=== PATIENT | female | born 1985 | race Two or more races ===

== ENCOUNTER 2020-04-28 15:28 | Observation (INO) | payer SELFPAY ==
[~2020-04-28] VITALS: Ht 160 cm; Wt 78.1 kg
[2020-04-28] MEDS ORDERED: IV RINGERS,LACTATED 1000ML 1,000 ML IV SCH (15:34)
[2020-04-28] MEDS ORDERED: OXYTOCIN 30 UNIT/500 ML PREMIX 500 ML IV PRN ×3 (15:45→23:45)
[2020-04-28] MEDS ORDERED: ACETAMINOPHEN 325 MG TABLET. PO PRN ×2 (15:45→23:45)
[2020-04-28] MEDS ORDERED: ONDANSETRON PF 4 MG/2 ML VIAL. IVP PRN (15:45)
[2020-04-28] MEDS ORDERED: ZOLPIDEM 5 MG TABLET. PO PRN ×2 (15:45→23:45)
[2020-04-28] MEDS ORDERED: 0.9 % SODIUM CHLORIDE 10 ML DISP.SYRIN. IV PRN ×2 (15:45→23:45)
[2020-04-28] MEDS ORDERED: fentaNYL PF VIAL 100 MCG/2 ML VIAL IVP PRN ×2 (15:45)
[2020-04-28] MEDS ORDERED: CITRIC ACID/SODIUM CITRATE 30 ML SOLUTION. PO PRN (15:45)
[2020-04-28] MEDS ORDERED: TERBUTALINE 1 MG/ML VIAL. SQ PRN (15:45)
[2020-04-28] MEDS ORDERED: LIDOCAINE 1% PF 30 ML VIAL. INJ PRN (15:45)
[2020-04-28] MEDS ORDERED: BUTORPHANOL 2 MG/ML VIAL. IVP PRN ×2 (15:45)
[2020-04-28] MEDS ORDERED: IBUPROFEN 400 MG TABLET. PO PRN ×3 (15:45→23:45)
[2020-04-28 16:04] LABS: BILIRUBIN,URINE NEGATIVE (NEG); CLARITY,URINE CLEAR; COLOR,URINE YELLOW; NITRITE,URINE NEGATIVE (NEG); PROTEIN,URINE NEGATIVE (NEG-TRACE); UROBILINOGEN,URINE 0.2 mg/dL (0.2 mg/dL)
[2020-04-28 16:09] LABS: BACTERIA,URINE FEW /HPF (0-FEW); SQUAMOUS EPITHELIAL CELL,UR FEW /LPF; WBC,URINE OCC /HPF (0-4)
[2020-04-28 16:10] LABS: BARBITURATES NEG (NEG); BENZODIAZEPINES NEG (NEG); CANNABINOIDS NEG (NEG); COCAINE NEG (NEG); METHADONE NEG (NEG); OPIATES NEG (NEG); PHENCYCLIDINE NEG (NEG)
[2020-04-28 16:14] LABS: AMPHETAMINE/METHAMPHETAMINE NEG (NEG)
[2020-04-28 16:14] LABS: AMNIO PT POSITIVE
[2020-04-28 16:35] LABS: BASO % 0 % (0-3); EOS % 0 % (0-3); HEMATOCRIT 34.8 % (36.0-47.0); HEMOGLOBIN 11.9 g/dL (12.0-15.5); LYMPH # 1.9 x10^3/uL (1.0-4.8); LYMPH % 16 % (24-48); MEAN CORPUSCULAR HEMOGLOBIN 29 pg (25-35); MEAN CORPUSCULAR HGB CONC 34 g/dL (31-37); MEAN CORPUSCULAR VOLUME 84 fL (79-100); MONO # 0.8 x10^3/uL (0.0-1.1); MONO % 7 % (0-9); NEUT # 9.5 x10^3/uL (1.8-7.7); NEUT % 77 % (31-73); PLATELET COUNT 245 x10^3/uL (140-400); RED BLOOD COUNT 4.13 x10^6/uL (3.50-5.40); RED CELL DISTRIBUTION WIDTH 13.7 % (11.5-14.5); WHITE BLOOD COUNT 12.4 x10^3/uL (4.0-11.0)
[2020-04-28] MEDS ORDERED: ROPIVacaine 0.2% PF 10 ML VIAL. ONE ×2 (17:00→21:31)
[2020-04-28] MEDS ORDERED: OXYTOCIN PREMIX 30 UNIT/500 ML NS BAG. IV ONE (17:00)
[2020-04-28] MEDS ORDERED: L&D EPIDURAL 50 ML SYRINGE. ONE (17:00)
[2020-04-28] MEDS ORDERED: ePHEDrine PF IN SALINE 50 MG/10 ML SYRINGE. IV PRN (21:30)
[2020-04-28] MEDS ORDERED: L&D EPIDURAL SYRINGE 50 ML EPID PRN (21:30)
[2020-04-28] MEDS ORDERED: IV RINGERS,LACTATED 1000ML 1,000 ML IV ONE (21:30)
[2020-04-28] MEDS ORDERED: NALOXONE 0.4 MG/ML VIAL. IV PRN (21:30)
[2020-04-28] MEDS ORDERED: ONDANSETRON PF 4 MG/2 ML VIAL. IV PRN (21:30)
--- NOTE | 2020-04-28 23:38 | PDOC1 ---
OB - History Hx of Present Care: Good Care Ultrasounds: Normal mid trimester US Obstetrical Complications: None Medical Complications: None Past Family/Social History * Past Medical, Surgical, Family and Obstetric Histories reviewed from chart. OB - Chief Complaint & HPI Date of Admission: Date of Admission: Apr 28, 2020 at 15:28 Chief Complaint/History : 2 Para: 1 EGA: 39 Reason for admission: active labor, rupture of membranes Admission Nurse Assessment Rev: Yes OB - Admission Exam Physical Exam HEENT: Normal Heart: Regular Rate Lungs: Clear Abdomen: Gravid, Non tender, Soft Extremities: Edema Reflexes: Normal Cervical Dilatation: 2cm Effacement: 50% Station: -3 Membranes: Ruptured Amniotic Fluid: Clear Heart Rate: Normal Accelerations: Accelerations Present Decelerations: No decelerations Contractions on Admission: >10 Minutes Apart Text A: 38 wks IUP SROM Active labor P: Admit labor management. Start pitocin augmentation. ANNA YANG Jr, MD Apr 28, 2020 23:38
--- NOTE | 2020-04-28 23:42 | PDOC ---
VAGINAL DELIVERY DATE DATE: 04/28/20 TIME: 23:38 : 2 Para: 2 EGA: 38 VAGINAL DELIVERY: VTX VACCUM ASSISTED: No PLACENTA: Spontaneous 8/9 SEX: Female WEIGHT Weight [ 6 lbs. 2 oz] Nuchal Cord: No Amniotic Fluid: Clear PAIN: Epidural EPISIOTOMY: No EXTENSION: No EBL 300 ml Signs of Intrauterine Infectio: None Shoulder Dystocia: No ANNA YANG Jr, MD Apr 28, 2020 23:42
[2020-04-28] MEDS ORDERED: TDaP (Adacel) per PROTOCOL. MC PRN (23:45)
[2020-04-28] MEDS ORDERED: PHENYLEPH/MINERAL OIL/PETROLAT RECTAL OINTMENT TUBE. RC PRN (23:45)
[2020-04-28] MEDS ORDERED: diphenhydrAMINE HCL 25 MG CAPSULE PO PRN (23:45)
[2020-04-28] MEDS ORDERED: MMR per PROTOCOL. MC PRN (23:45)
[2020-04-28] MEDS ORDERED: BENZOCAINE 20% TOPICAL AEROSOL SPRAY 57GM CAN. TP PRN (23:45)
[2020-04-28] MEDS ORDERED: oxyCODONE/APAP 5/325 1 TAB TABLET PO PRN (23:45)
[2020-04-28] MEDS ORDERED: DOCUSATE SODIUM 100 MG CAPSULE. PO PRN (23:45)
[2020-04-28] MEDS ORDERED: SIMETHICONE 80 MG TAB.CHEW PO PRN (23:45)
[2020-04-28] MEDS ORDERED: MAGNESIUM HYDROXIDE 2,400 MG/30 ML ORAL.SUSP. PO PRN (23:45)
[2020-04-28] MEDS ORDERED: HYDROCORTISONE 1% TOPICAL OINTMENT 30GM TUBE. TP PRN (23:45)
[2020-04-28] MEDS ORDERED: MAG HYDROX/ALUMINUM HYD/SIMETH 30 ML ORAL.SUSP PO PRN (23:45)
[2020-04-29 02:42] VITALS: BP 92/51
[2020-04-29 03:08] VITALS: BP 109/49
[2020-04-29 07:33] LABS: BASO # 0.1 x10^3/uL (0.0-0.2); BASO % 0 % (0-3); EOS % 0 % (0-3); HEMATOCRIT 35.5 % (36.0-47.0); HEMOGLOBIN 11.9 g/dL (12.0-15.5); LYMPH # 2.2 x10^3/uL (1.0-4.8); LYMPH % 13 % (24-48); MEAN CORPUSCULAR HEMOGLOBIN 28 pg (25-35); MEAN CORPUSCULAR HGB CONC 34 g/dL (31-37); MEAN CORPUSCULAR VOLUME 85 fL (79-100); MONO # 0.9 x10^3/uL (0.0-1.1); MONO % 5 % (0-9); NEUT # 13.5 x10^3/uL (1.8-7.7); NEUT % 82 % (31-73); PLATELET COUNT 232 x10^3/uL (140-400); RED BLOOD COUNT 4.19 x10^6/uL (3.50-5.40); WHITE BLOOD COUNT 16.6 x10^3/uL (4.0-11.0)
[2020-04-29] MEDS ORDERED: FERROUS SULFATE 325 MG TABLET. PO SCH (08:00)
[2020-04-29 08:02] LABS: % LYMPHS 5 % (24-48); % MONOS 7 % (0-10); % SEGS 88 % (35-66); PLT ESTIMATE ADEQUATE (ADEQUATE)
[2020-04-29 08:30] VITALS: BP 92/50
[2020-04-29] MEDS ORDERED: MULTIVITAMIN with MINERAL TABLET. PO SCH (09:00)
[2020-04-29 12:49] VITALS: BP 118/55
--- NOTE | 2020-04-29 14:37 | PDOC ---
OB Progress Note Date of Service 04/29/20 Time of Evaluation 1430 Notes Pt. feeling well. Pain controlled. No complaints. Lab Laboratory Tests Test 04/28/20 15:45 04/28/20 15:55 04/28/20 16:27 04/29/20 07:25 Urine Collection Type Unknown Urine Color Yellow Urine Clarity Clear Urine pH 7.0 (<5.0-8.0) Urine Specific Cascade 1.010 (1.000-1.030) Urine Protein Negative mg/dL (NEG-TRACE) Urine Glucose (UA) Negative mg/dL (NEG) Urine Ketones (Stick) Negative mg/dL (NEG) Urine Blood Trace (NEG) Urine Nitrite Negative (NEG) Urine Bilirubin Negative (NEG) Urine Urobilinogen Dipstick 0.2 mg/dL (0.2 mg/dL) Urine Leukocyte Esterase Negative (NEG) Urine RBC 6-10 /HPF (0-2) Urine WBC Occ /HPF (0-4) Urine Squamous Epithelial Cells Few /LPF Urine Bacteria Few /HPF (0-FEW) Urine Mucus Slight /LPF Urine Opiates Screen Neg (NEG) Urine Methadone Screen Neg (NEG) Urine Barbiturates Neg (NEG) Urine Phencyclidine Screen Neg (NEG) Urine Amphetamine/Methamphetamine Neg (NEG) Urine Benzodiazepines Screen Neg (NEG) Urine Cocaine Screen Neg (NEG) Urine Cannabinoids Screen Neg (NEG) Urine Ethyl Alcohol Neg (NEG) Amniotic Fluid Swab Test Positive Coronavirus (COVID-19)(PCR) Negative (NEGATIVE) White Blood Count 12.4 x10^3/uL (4.0-11.0) 16.6 x10^3/uL (4.0-11.0) Red Blood Count 4.13 x10^6/uL (3.50-5.40) 4.19 x10^6/uL (3.50-5.40) Hemoglobin 11.9 g/dL (12.0-15.5) 11.9 g/dL (12.0-15.5) Hematocrit 34.8 % (36.0-47.0) 35.5 % (36.0-47.0) Mean Corpuscular Volume 84 fL (79-100) 85 fL (79-100) Mean Corpuscular Hemoglobin 29 pg (25-35) 28 pg (25-35) Mean Corpuscular Hemoglobin Concent 34 g/dL (31-37) 34 g/dL (31-37) Red Cell Distribution Width 13.7 % (11.5-14.5) 14.0 % (11.5-14.5) Platelet Count 245 x10^3/uL (140-400) 232 x10^3/uL (140-400) Neutrophils (%) (Auto) 77 % (31-73) 82 % (31-73) Lymphocytes (%) (Auto) 16 % (24-48) 13 % (24-48) Monocytes (%) (Auto) 7 % (0-9) 5 % (0-9) Eosinophils (%) (Auto) 0 % (0-3) 0 % (0-3) Basophils (%) (Auto) 0 % (0-3) 0 % (0-3) Neutrophils # (Auto) 9.5 x10^3/uL (1.8-7.7) 13.5 x10^3/uL (1.8-7.7) Lymphocytes # (Auto) 1.9 x10^3/uL (1.0-4.8) 2.2 x10^3/uL (1.0-4.8) Monocytes # (Auto) 0.8 x10^3/uL (0.0-1.1) 0.9 x10^3/uL (0.0-1.1) Eosinophils # (Auto) 0.0 x10^3/uL (0.0-0.7) 0.0 x10^3/uL (0.0-0.7) Basophils # (Auto) 0.0 x10^3/uL (0.0-0.2) 0.1 x10^3/uL (0.0-0.2) Segmented Neutrophils % 88 % (35-66) Lymphocytes % 5 % (24-48) Monocytes % 7 % (0-10) Platelet Estimate Adequate (ADEQUATE) Laboratory Tests Test 04/28/20 15:45 04/28/20 15:55 04/28/20 16:27 04/29/20 07:25 Urine Collection Type Unknown Urine Color Yellow Urine Clarity Clear Urine pH 7.0 (<5.0-8.0) Urine Specific Cascade 1.010 (1.000-1.030) Urine Protein Negative mg/dL (NEG-TRACE) Urine Glucose (UA) Negative mg/dL (NEG) Urine Ketones (Stick) Negative mg/dL (NEG) Urine Blood Trace (NEG) Urine Nitrite Negative (NEG) Urine Bilirubin Negative (NEG) Urine Urobilinogen Dipstick 0.2 mg/dL (0.2 mg/dL) Urine Leukocyte Esterase Negative (NEG) Urine RBC 6-10 /HPF (0-2) Urine WBC Occ /HPF (0-4) Urine Squamous Epithelial Cells Few /LPF Urine Bacteria Few /HPF (0-FEW) Urine Mucus Slight /LPF Urine Opiates Screen Neg (NEG) Urine Methadone Screen Neg (NEG) Urine Barbiturates Neg (NEG) Urine Phencyclidine Screen Neg (NEG) Urine Amphetamine/Methamphetamine Neg (NEG) Urine Benzodiazepines Screen Neg (NEG) Urine Cocaine Screen Neg (NEG) Urine Cannabinoids Screen Neg (NEG) Urine Ethyl Alcohol Neg (NEG) Amniotic Fluid Swab Test Positive Coronavirus (COVID-19)(PCR) Negative (NEGATIVE) White Blood Count 12.4 x10^3/uL (4.0-11.0) 16.6 x10^3/uL (4.0-11.0) Red Blood Count 4.13 x10^6/uL (3.50-5.40) 4.19 x10^6/uL (3.50-5.40) Hemoglobin 11.9 g/dL (12.0-15.5) 11.9 g/dL (12.0-15.5) Hematocrit 34.8 % (36.0-47.0) 35.5 % (36.0-47.0) Mean Corpuscular Volume 84 fL (79-100) 85 fL (79-100) Mean Corpuscular Hemoglobin 29 pg (25-35) 28 pg (25-35) Mean Corpuscular Hemoglobin Concent 34 g/dL (31-37) 34 g/dL (31-37) Red Cell Distribution Width 13.7 % (11.5-14.5) 14.0 % (11.5-14.5) Platelet Count 245 x10^3/uL (140-400) 232 x10^3/uL (140-400) Neutrophils (%) (Auto) 77 % (31-73) 82 % (31-73) Lymphocytes (%) (Auto) 16 % (24-48) 13 % (24-48) Monocytes (%) (Auto) 7 % (0-9) 5 % (0-9) Eosinophils (%) (Auto) 0 % (0-3) 0 % (0-3) Basophils (%) (Auto) 0 % (0-3) 0 % (0-3) Neutrophils # (Auto) 9.5 x10^3/uL (1.8-7.7) 13.5 x10^3/uL (1.8-7.7) Lymphocytes # (Auto) 1.9 x10^3/uL (1.0-4.8) 2.2 x10^3/uL (1.0-4.8) Monocytes # (Auto) 0.8 x10^3/uL (0.0-1.1) 0.9 x10^3/uL (0.0-1.1) Eosinophils # (Auto) 0.0 x10^3/uL (0.0-0.7) 0.0 x10^3/uL (0.0-0.7) Basophils # (Auto) 0.0 x10^3/uL (0.0-0.2) 0.1 x10^3/uL (0.0-0.2) Segmented Neutrophils % 88 % (35-66) Lymphocytes % 5 % (24-48) Monocytes % 7 % (0-10) Platelet Estimate Adequate (ADEQUATE) Medications Current Medications Sodium Chloride (Normal Saline Flush) 3 ml QSHIFT PRN IV AFTER MEDS AND BLOOD DRAWS; Start 04/28/20 at 15:45 Ringer's Solution 1,000 ml @ 125 mls/hr Q8H IV Last administered on 04/29/20at 01:16; Start 04/28/20 at 15:34 Butorphanol Tartrate (Stadol) 1 mg PRN Q1HR PRN IVP mild to moderate labor pain; Start 04/28/20 at 15:45 Butorphanol Tartrate (Stadol) 2 mg PRN Q1HR PRN IVP Severe labor pain; Start 04/28/20 at 15:45 Fentanyl Citrate (Fentanyl 2ml Vial) 50 mcg PRN Q30MIN PRN IVP Mild to moderate pain; Start 04/28/20 at 15:45 Fentanyl Citrate (Fentanyl 2ml Vial) 100 mcg PRN Q30MIN PRN IVP Severe pain; Start 04/28/20 at 15:45 Acetaminophen (Tylenol) 650 mg PRN Q6HRS PRN PO MILD PAIN / TEMP > 100.3'F Last administered on 04/29/20at 06:27; Start 04/28/20 at 15:45 Ondansetron HCl (Zofran) 4 mg PRN Q4HRS PRN IVP NAUSEA/VOMITING; Start 04/28/20 at 15:45 Citric Acid/ Sodium Citrate (Bicitra) 30 ml 1X PRN PRN PO DYSPEPSIA; Start 04/28/20 at 15:45; Stop 04/29/20 at 15:44 Zolpidem Tartrate (Ambien) 5 mg PRN QHS PRN PO INSOMNIA; Start 04/28/20 at 15:45 Terbutaline Sulfate (Brethine) 0.25 mg 1X PRN PRN SQ SEE COMMENTS; Start 04/28/20 at 15:45; Stop 04/29/20 at 15:44 Lidocaine HCl (Xylocaine 1% Pf 30ml Vial) 30 ml 1X PRN PRN INJ SEE COMMENTS; Start 04/28/20 at 15:45; Stop 04/30/20 at 15:44 Oxytocin/Sodium Chloride 500 ml @ 0 mls/hr CONT PRN IV SEE I/O RECORD; Start 04/28/20 at 15:45 Oxytocin/Sodium Chloride 500 ml @ 0 mls/hr CONT PRN PRN IV Post delivery bleeding; Start 04/28/20 at 15:45 Ibuprofen (Motrin) 800 mg PRN Q6HRS PRN PO PAIN; Start 04/28/20 at 15:45; Stop 04/28/20 at 16:00; Status DC Ibuprofen (Motrin) 800 mg PRN Q8HRS PRN PO PAIN Last administered on 04/29/20at 01:14; Start 04/28/20 at 16:15 Ringer's Solution 1,000 ml @ 0 mls/hr Q0M ONCE IV ; Start 04/28/20 at 21:30; Stop 04/28/20 at 21:36; Status DC Ephedrine Sulfate (ePHEDrine PF IN SALINE SYRINGE) 10 mg PRN Q2MIN PRN IV IF SBP<90; Start 04/28/20 at 21:30 Naloxone HCl (Narcan) 0.04 mg PRN Q1MIN PRN IV SEE COMMENTS; Start 04/28/20 at 21:30 Fentanyl Citrate 50 ml @ 14 mls/hr CONT PRN EPID PAIN; Start 04/28/20 at 21:30 Ondansetron HCl (Zofran) 4 mg PRN Q6HRS PRN IV NAUSEA/VOMITING; Start 04/28/20 at 21:30 Ropivacaine (Naropin 0.2%) 10 ml STK-MED ONCE .ROUTE ; Start 04/28/20 at 21:31; Stop 04/28/20 at 21:32; Status DC Sodium Chloride (Normal Saline Flush) 10 ml QSHIFT PRN IV AFTER MEDS AND BLOOD DRAWS; Start 04/28/20 at 23:45 Oxytocin/Sodium Chloride 500 ml @ 62.5 mls/hr CONT PRN IV SEE I/O RECORD; Start 04/28/20 at 23:45; Stop 04/29/20 at 07:44; Status DC Acetaminophen (Tylenol) 650 mg PRN Q6HRS PRN PO MILD PAIN / TEMP > 100.3'F; Start 04/28/20 at 23:45 Ibuprofen (Motrin) 800 mg PRN Q8HRS PRN PO INFLAMMATION/PAIN PREVENTION; Start 04/28/20 at 23:45 Docusate Sodium (Colace) 100 mg PRN BID PRN PO HARD STOOL; Start 04/28/20 at 23:45 Magnesium Hydroxide (Milk Of Magnesia) 2,400 mg PRN DAILY PRN PO CONSTIPATION; Start 04/28/20 at 23:45 Al Hydroxide/Mg Hydroxide (Mylanta Plus Xs) 30 ml PRN Q4HRS PRN PO HEARTBURN / GAS; Start 04/28/20 at 23:45 Simethicone (Gas-X) 80 mg PRN AFTMEALHC PRN PO GAS / BLOATING; Start 04/28/20 at 23:45 Diphenhydramine HCl (Benadryl) 25 mg PRN Q6HRS PRN PO ITCHING; Start 04/28/20 at 23:45 Benzocaine (Americaine) 1 spray PRN QID PRN TP TOPICAL PAIN; Start 04/28/20 at 23:45 Phenyleph/Shark Oil/Min Oil/Petrol (Preparation H) 1 naomi PRN QID PRN RC RECTAL PAIN; Start 04/28/20 at 23:45 Hydrocortisone (Cortaid) 1 naomi PRN QID PRN TP PERINEAL PAIN; Start 04/28/20 at 23:45 Ferrous Sulfate (Feosol) 325 mg BIDWMEALS PO ; Start 04/29/20 at 08:00; Stop 04/29/20 at 11:59; Status DC Zolpidem Tartrate (Ambien) 5 mg PRN QHS PRN PO INSOMNIA, MAY REPEAT X1; Start 04/28/20 at 23:45 Info (Do NOT chart on this placeholder) 1 ea 1X PRN PRN MC SEE COMMENTS; Start 04/28/20 at 23:45 Info (Do NOT chart on this placeholder) 1 ea 1X PRN PRN MC SEE COMMENTS; Start 04/28/20 at 23:45 Oxycodone/ Acetaminophen (Percocet 5/325) 2 tab PRN Q4HRS PRN PO MODERATE PAIN, SEVERE PAIN; Start 04/28/20 at 23:45 Multivitamins (Thera M Plus) 1 tab DAILY PO ; Start 04/29/20 at 09:00 Fentanyl Citrate (Yiaxtoms-Wdwww-QC 3 Mcg-0.1%) 50 ml STK-MED ONCE .ROUTE ; Start 04/28/20 at 17:00; Stop 04/29/20 at 11:10; Status DC Ropivacaine (Naropin 0.2%) 10 ml STK-MED ONCE .ROUTE ; Start 04/28/20 at 17:00; Stop 04/29/20 at 11:10; Status DC Oxytocin/Sodium Chloride (Oxytocin Premix Infusion) 30 unit STK-MED ONCE IV ; Start 04/28/20 at 17:00; Stop 04/29/20 at 11:10; Status DC Exam Abd: soft, non tender, fundus firm Assessment PPD#1 s/p Plan of Care: Continue current Tx, Mgmt ANNA YANG Jr, MD Apr 29, 2020 14:37
[2020-04-29 18:30] VITALS: BP 89/52
[2020-04-29 22:31] VITALS: BP 95/54
[2020-04-30 05:03] VITALS: BP 100/64
[2020-04-30 12:35] VITALS: BP 105/69
--- NOTE | 2020-04-30 14:42 | PDOC3 ---
OB DISCHARGE SUMMARY DATE OF ADMISSION: 04/28/20 DATE OF DISCHARGE: 04/30/20 REASON FOR ADMISSION: Onset of labor INTRAPARTUM PROCEDURES: Spontanous Vag Deliv DISCHARGE DIAGNOSIS: Term Delivered DISCHARGE INFORMATION: Activity (ad romana), Diet (regular), Instructions (pelvic rest x 6 wks) HOSPITAL COURSE Term gestation delivered vaginally without complications. ANNA YANG Jr, MD Apr 30, 2020 14:42
[2020-04-30] MEDS ORDERED: IBUP-1027 PO (14:43)
--- NOTE | 2020-04-30 14:44 | DISCH ---
DISCHARGE INSTRUCTIONS Condition on Discharge Condition on Discharge: Stable Activity After Discharge Activity Instructions for Disc: Activity as tolerated Lifting Instructions after Dis: No heavy lifting Driving Instructions after Dis: Do not drive today Diet after Discharge Diet after Discharge: Regular Contacting the DRCezar after DC Call your doctor for: Concerns you may have Follow-Up Follow up with: Jean in 6 wks ANNA YANG Jr, MD Apr 30, 2020 14:44
[2020-04-30 15:30] VITALS: BP 119/86
--- NOTE | 2020-04-30 15:55 | NUR ---
Discharge and follow up instructions reviewed and given to pt in French. Pt denies any questions or complaints at time of D/C. Pt ambulated out of the hospital with her S/O and all her belongings. Infant placed in car seat securely and placed rear facing in the back seat of their SUV.
--- NOTE | 2020-04-30 16:00 | NUR ---
Call placed to pt to notify her to make her F/U appt at [facility] instead of at Dr. Bush's office.
== END 2020-04-30 15:55 | disposition home or self-care (01) ==
LOC: 3 SO LND 15:28 → 3 NORTH 04-29 02:15
PROVIDERS: ADMIT Obstetrics & Gynecology; ATTEND Obstetrics & Gynecology
DX: O42.92 Full-term premature rupture of membranes, unspecified as to length of time between rupture and onset of labor (principal); Z3A.38 38 weeks gestation of pregnancy
CPT/HCPCS: 36415; 80307; 81001; 84112; 85007; 85025; 86850; 86900; 86901; G0378; G0379; J2590; J2795; J3010; J7120; U0003

== ENCOUNTER 2022-01-12 17:11 | Emergency (ER) | payer MEDICAID ==
[~2022-01-12] VITALS: Ht 157.5 cm; Wt 59.1 kg
[~2022-01-12 17:11] MED LIST: IBUP-1027 PO
[2022-01-12] MEDS ORDERED: ONDANSETRON PF 4 MG/2 ML VIAL. IVP ONE (18:30)
[2022-01-12] MEDS ORDERED: fentaNYL PF VIAL 100 MCG/2 ML VIAL IVP ONE (18:30)
[2022-01-12] MEDS ORDERED: IV NORMAL SALINE 1000ML BAG 1,000 ML IV ONE (18:30)
[2022-01-12] MEDS ORDERED: FAMOTIDINE 20 MG/2 ML VIAL IVP ONE (18:30)
[2022-01-12 18:41] LABS: AMPHETAMINE/METHAMPHETAMINE NEG (NEG); BARBITURATES NEG (NEG); BENZODIAZEPINES NEG (NEG); CANNABINOIDS NEG (NEG); COCAINE NEG (NEG); METHADONE NEG (NEG); OPIATES NEG (NEG); PHENCYCLIDINE NEG (NEG)
[2022-01-12 18:47] LABS: BASO # 0.1 x10^3/uL (0.0-0.2); BASO % 1 % (0-3); EOS # 0.1 x10^3/uL (0.0-0.7); EOS % 1 % (0-3); HEMATOCRIT 39.7 % (36.0-47.0); HEMOGLOBIN 13.6 g/dL (12.0-15.5); LYMPH # 3.2 x10^3/uL (1.0-4.8); LYMPH % 31 % (24-48); MEAN CORPUSCULAR HEMOGLOBIN 29 pg (25-35); MEAN CORPUSCULAR HGB CONC 34 g/dL (31-37); MEAN CORPUSCULAR VOLUME 83 fL (79-100); MONO # 0.7 x10^3/uL (0.0-1.1); MONO % 7 % (0-9); NEUT % 59 % (31-73); PLATELET COUNT 328 x10^3/uL (140-400); RED BLOOD COUNT 4.75 x10^6/uL (3.50-5.40); RED CELL DISTRIBUTION WIDTH 12.7 % (11.5-14.5); WHITE BLOOD COUNT 10.1 x10^3/uL (4.0-11.0)
[2022-01-12 19:00] LABS: BILIRUBIN,URINE NEGATIVE (NEG); CLARITY,URINE CLEAR; COLOR,URINE YELLOW; NITRITE,URINE NEGATIVE (NEG); PROTEIN,URINE NEGATIVE (NEG-TRACE); UROBILINOGEN,URINE 0.2 mg/dL (0.2 mg/dL)
[2022-01-12 19:01] LABS: BACTERIA,URINE 0 /HPF (0-FEW); RBC,URINE OCC /HPF (0-2)
[2022-01-12 19:06] LABS: CALCIUM 8.9 mg/dL (8.5-10.1); CREATININE 0.8 mg/dL (0.6-1.0); GFR 81.6; POTASSIUM 3.8 mmol/L (3.5-5.1)
[2022-01-12 19:12] LABS: ALBUMIN 4.3 g/dL (3.4-5.0); TOTAL BILIRUBIN 0.4 mg/dL (0.2-1.0); TOTAL PROTEIN 8.5 g/dL (6.4-8.2)
--- NOTE | 2022-01-12 19:23 | RAD ---
EXAM: ULTRASOUND ABDOMEN LIMITED 01/12/2022 CLINICAL HISTORY: Reason: RUQ pain / Spl. Instructions: / History: Pain COMPARISON: None available. TECHNIQUE: Limited ultrasound examination of the right upper quadrant of the abdomen was performed. FINDINGS: Liver is homogeneous. No focal hepatic mass. Intrahepatic and extra hepatic biliary tree normal in ca liber. The CBD measures 3 mm Gallbladder normal in size and echogenicity. Gallbladder wall is upper limits of normal in thickness measuring 3 mm. No pericholecystic fluid. No gallstones are seen. Right kidney measures 10.3 cm in length without hydronephrosis. Left kidney was not imaged. Limited visualized portions of pancreas aorta and IVC unremarkable. No significant ascites. IMPRESSION: 1. No apparent acute sonographic abnormality. 2. Borderline gallbladder wall thickening, nonspecific. Electronically signed by: Tejas Kendrick MD (01/12/2022 7:21 PM) ESEQUIEL
--- NOTE | 2022-01-12 19:49 | RAD ---
Exam: CT abdomen and pelvis without contrast INDICATION: Right flank pain TECHNIQUE: Sequential axial images through the abdomen and pelvis obtained without IV contrast. Sagit monisha and coronal reformatted images were reconstructed from the axial data and reviewed. Exposure: One or more of the following in the visualized dose reduction techniques were utilized for this examination: 1. Automated exposure control 2. Adjustment of the MA and/or KV according to patient size 3. Use of iterative of reconstructive technique Comparisons: Ultrasound same day FINDINGS: Heart size is normal. No pericardial effusion. Visualized lung bases are clear. No pleural effusion. Evaluation of solid organs limited secondary to noncontrast technique. Liver, spleen, pancreas, gallbladder and adrenals are unremarkable. No perinephric inflammation or hydronephrosis. A 2 mm calculus at the upper pole of the right kidney. No ureteral calculi are identified. Bladder is persistent and not well evaluated. Uterus not enlarged. No abnormal adnexal mass. Moderate amount of stool is noted in the colon. Appendix is normal. Small bowel is unremarkable. No f ree intra-abdominal air or fluid. No obstruction. Abdominal aorta has normal course and caliber. No enlarged intra-abdominal lymph nodes are identified. No suspicious osseous lesions or acute fractures. IMPRESSION: 1. Nonobstructing right renal calculus. No ureteral calculi or evidence for obstructive uropathy. 2. Moderate stool in colon., Correlate for constipation Electronically signed by: Padmini Joyce MD (01/12/2022 7:47 PM) [facility]
[2022-01-12] MEDS ORDERED: BISACODYL 5 MG TABLET.DR. PO STA (20:04)
[2022-01-12] MEDS ORDERED: MAGNESIUM CITRATE 296 ML SOLUTION. PO ONE (20:30)
[2022-01-12] MEDS ORDERED: POLY119P4 PO (20:36)
--- NOTE | 2022-01-12 20:37 | PHYS DOC ---
Past Medical History Past Surgical History: No Surgical History General Adult EDM: Chief Complaint: FLANK PAIN HPI: HPI: Patient is a 36 year old female with no significant medical history presenting today complaining of moderate right upper quadrant abdominal pain radiating to her flank region, symptoms have been going on for 1 year. Patient denies any nausea, vomiting. She states she has been worked up for this pain before including an EGD a couple months ago which showed she had a cyst in her stomach, patient states she was started on omeprazole which was helping with the pain but did not help today. Patient denies any nausea, vomiting, diarrhea. Patient is [place]-speaking and her friend is interpreting, she understands some Kiswahili Review of Systems: Review of Systems: Constitutional: Denies fever or chills. [] Eyes: Denies change in visual acuity. [] HENT: Denies nasal congestion or sore throat. [] Respiratory: Denies cough or shortness of breath. [] Cardiovascular: Denies chest pain or edema. [] GI: Reports right upper quadrant abdominal pain, denies nausea, vomiting, bloody stools or diarrhea. [] : Reports right flank pain. Denies dysuria. [] Musculoskeletal: Denies back pain or joint pain. [] Integument: Denies rash. [] Neurologic: Denies headache, focal weakness or sensory changes. [] Psychiatric: Denies depression or anxiety. [] Heart Score: C/O Chest Pain: N/A Risk Factors: Risk Factors: DM, Current or recent (<one month) smoker, HTN, HLP, family history of CAD, obesity. Risk Scores: Score 0 - 3: 2.5% MACE over next 6 weeks - Discharge Home Score 4 - 6: 20.3% MACE over next 6 weeks - Admit for Clinical Observation Score 7 - 10: 72.7% MACE over next 6 weeks - Early Invasive Strategies Current Medications: Current Medications Medications (Trade) Dose Ordered Sig/Torres Start Time Stop Time Status Last Admin Dose Admin Bisacodyl (Dulcolax Tab) 10 mg 1X STAT 01/12/22 20:04 01/12/22 20:06 DC 01/12/22 20:20 10 MG Famotidine (Pepcid Vial) 20 mg 1X ONCE 01/12/22 18:30 01/12/22 18:31 DC 01/12/22 19:12 20 MG Fentanyl Citrate (Fentanyl 2ml Vial) 50 mcg 1X ONCE 01/12/22 18:30 01/12/22 18:31 DC 01/12/22 19:08 50 MCG Magnesium Citrate (Citroma) 296 ml 1X ONCE 01/12/22 20:30 01/12/22 20:31 01/12/22 20:21 296 ML Ondansetron HCl (Zofran) 4 mg 1X ONCE 01/12/22 18:30 01/12/22 18:31 DC 01/12/22 19:10 4 MG Sodium Chloride 1,000 ml @ 1,000 mls/hr 1X ONCE 01/12/22 18:30 01/12/22 19:29 DC 01/12/22 19:06 1,000 MLS/HR Allergies: Allergies: Allergies Coded Allergies Type Severity Reaction Last Updated Verified No Known Drug Allergies 04/28/20 No Physical Exam: PE: Constitutional: Well developed, well nourished, no acute distress, non-toxic appearance. [] HENT: Normocephalic, atraumatic, bilateral external ears normal, oropharynx moist, no oral exudates, nose normal. [] Eyes: PERRLA, EOMI, conjunctiva normal, no discharge. [] Neck: Normal range of motion, no tenderness, supple, no stridor. [] Cardiovascular:Heart rate regular rhythm, no murmur [] Lungs & Thorax: Bilateral breath sounds clear to auscultation [] Abdomen: Bowel sounds normal, soft, slight tenderness on palpation of the right upper quadrant with negative Ovalle sign, no right lower quadrant tenderness no masses, no pulsatile masses. [] Skin: Warm, dry, no erythema, no rash. [] Back: No tenderness, no CVA tenderness. [] Extremities: No tenderness, no cyanosis, no clubbing, ROM intact, no edema. [] Neurologic: Alert and oriented X 3, normal motor function, normal sensory function, no focal deficits noted. [] Psychologic: Flat affect, tearful Current Patient Data: Labs: Laboratory Tests Test 01/12/22 18:05 01/12/22 18:24 01/12/22 18:40 Urine Collection Type Void Urine Color Yellow Urine Clarity Clear Urine pH 7.0 (<5.0-8.0) Urine Specific [place] 1.010 (1.000-1.030) Urine Protein Negative mg/dL (NEG-TRACE) Urine Glucose (UA) Negative mg/dL (NEG) Urine Ketones (Stick) Negative mg/dL (NEG) Urine Blood Moderate (NEG) Urine Nitrite Negative (NEG) Urine Bilirubin Negative (NEG) Urine Urobilinogen Dipstick 0.2 mg/dL (0.2 mg/dL) Urine Leukocyte Esterase Trace (NEG) Urine RBC Occ /HPF (0-2) Urine WBC 1-4 /HPF (0-4) Urine Squamous Epithelial Cells Mod /LPF Urine Bacteria 0 /HPF (0-FEW) Urine Opiates Screen Neg (NEG) Urine Methadone Screen Neg (NEG) Urine Barbiturates Neg (NEG) Urine Phencyclidine Screen Neg (NEG) Urine Amphetamine/Methamphetamine Neg (NEG) Urine Benzodiazepines Screen Neg (NEG) Urine Cocaine Screen Neg (NEG) Urine Cannabinoids Screen Neg (NEG) Urine Ethyl Alcohol Neg (NEG) POC Urine HCG, Qualitative Hcg negative (Negative) White Blood Count 10.1 x10^3/uL (4.0-11.0) Red Blood Count 4.75 x10^6/uL (3.50-5.40) Hemoglobin 13.6 g/dL (12.0-15.5) Hematocrit 39.7 % (36.0-47.0) Mean Corpuscular Volume 83 fL (79-100) Mean Corpuscular Hemoglobin 29 pg (25-35) Mean Corpuscular Hemoglobin Concent 34 g/dL (31-37) Red Cell Distribution Width 12.7 % (11.5-14.5) Platelet Count 328 x10^3/uL (140-400) Neutrophils (%) (Auto) 59 % (31-73) Lymphocytes (%) (Auto) 31 % (24-48) Monocytes (%) (Auto) 7 % (0-9) Eosinophils (%) (Auto) 1 % (0-3) Basophils (%) (Auto) 1 % (0-3) Neutrophils # (Auto) 6.0 x10^3/uL (1.8-7.7) Lymphocytes # (Auto) 3.2 x10^3/uL (1.0-4.8) Monocytes # (Auto) 0.7 x10^3/uL (0.0-1.1) Eosinophils # (Auto) 0.1 x10^3/uL (0.0-0.7) Basophils # (Auto) 0.1 x10^3/uL (0.0-0.2) Sodium Level 141 mmol/L (136-145) Potassium Level 3.8 mmol/L (3.5-5.1) Chloride Level 104 mmol/L (98-107) Carbon Dioxide Level 24 mmol/L (21-32) Anion Gap 13 (6-14) Blood Urea Nitrogen 10 mg/dL (7-20) Creatinine 0.8 mg/dL (0.6-1.0) Estimated GFR (Cockcroft-Gault) 81.6 BUN/Creatinine Ratio 13 (6-20) Glucose Level 107 mg/dL (70-99) H Calcium Level 8.9 mg/dL (8.5-10.1) Total Bilirubin 0.4 mg/dL (0.2-1.0) Aspartate Amino Transferase (AST) 46 U/L (15-37) H Alanine Aminotransferase (ALT) 84 U/L (14-59) H Alkaline Phosphatase 74 U/L (46-116) Total Protein 8.5 g/dL (6.4-8.2) H Albumin 4.3 g/dL (3.4-5.0) Albumin/Globulin Ratio 1.0 (1.0-1.7) Lipase 141 U/L (73-393) Ethyl Alcohol Level < 10 mg/dL (0-10) Laboratory Tests 01/12/22 18:40 Laboratory Tests 01/12/22 18:40 Vital Signs: Vital Signs Date Time Temp Pulse Resp B/P (MAP) Pulse Ox O2 Delivery O2 Flow Rate FiO2 01/12/22 20:23 96 16 117/70 (86) 99 Room Air 01/12/22 17:54 98.3 98.3 EKG: EKG: [] Radiology/Procedures: Radiology/Procedures: []PROCEDURE: ABDOMEN LTD EXAM: ULTRASOUND ABDOMEN LIMITED 01/12/2022 CLINICAL HISTORY: Reason: RUQ pain / Spl. Instructions: / History: Pain COMPARISON: None available. TECHNIQUE: Limited ultrasound examination of the right upper quadrant of the abdomen was performed. FINDINGS: Liver is homogeneous. No focal hepatic mass. Intrahepatic and extra hepatic biliary tree normal in caliber. The CBD measures 3 mm Gallbladder normal in size and echogenicity. Gallbladder wall is upper limits of normal in thickness measuring 3 mm. No pericholecystic fluid. No gallstones are seen. Right kidney measures 10.3 cm in length without hydronephrosis. Left kidney was not imaged. Limited visualized portions of pancreas aorta and IVC unremarkable. No significant ascites. IMPRESSION: 1. No apparent acute sonographic abnormality. 2. Borderline gallbladder wall thickening, nonspecific. Electronically signed by: Tejas Kendrick MD (01/12/2022 7:21 PM) [facility] DICTATED and SIGNED BY: TEJAS KENDRICK MD DATE: 01/12/[id number] 0 PROCEDURE: CT ABDOMEN PELVIS WO CONTRAST Exam: CT abdomen and pelvis without contrast INDICATION: Right flank pain TECHNIQUE: Sequential axial images through the abdomen and pelvis obtained without IV contrast. Sagittal and coronal reformatted images were reconstructed from the axial data and reviewed. Exposure: One or more of the following in the visualized dose reduction techniques were utilized for this examination: 1. Automated exposure control 2. Adjustment of the MA and/or KV according to patient size 3. Use of iterative of reconstructive technique Comparisons: Ultrasound same day FINDINGS: Heart size is normal. No pericardial effusion. Visualized lung bases are clear. No pleural effusion. Evaluation of solid organs limited secondary to noncontrast technique. Liver, spleen, pancreas, gallbladder and adrenals are unremarkable. No perinephric inflammation or hydronephrosis. A 2 mm calculus at the upper pole of the right kidney. No ureteral calculi are identified. Bladder is persistent and not well evaluated. Uterus not enlarged. No abnormal adnexal mass. Moderate amount of stool is noted in the colon. Appendix is normal. Small bowel is unremarkable. No free intra-abdominal air or fluid. No obstruction. Abdominal aorta has normal course and caliber. No enlarged intra-abdominal lymph nodes are identified. No suspicious osseous lesions or acute fractures. IMPRESSION: 1. Nonobstructing right renal calculus. No ureteral calculi or evidence for obstructive uropathy. 2. Moderate stool in colon., Correlate for constipation Electronically signed by: Padmini Maldonado MD (01/12/2022 7:47 PM) [facility] DICTATED and SIGNED BY: PADMINI MALDONADO MD DATE: 01/12/[id number] 0 Course & Med Decision Making: Course & Med Decision Making Pertinent Labs and Imaging studies reviewed. (See chart for details) This is a 36-year-old female patient presenting to the ED today complaining of right upper quadrant abdominal pain radiating to her back, symptoms for 1 year. Negative urine hCG, UA negative for infection. CBC with no acute findings, CMP with AST of 46, ALT of 84, ALK is normal. Right upper quadrant ultrasound no apparent acute sonographic abnormality. Borderline gallbladder wall thickening, nonspecific. CT of the abdomen and pelvis nonobstructing right renal calculus. No ureteral calculi or evidence for obstructive uropathy. Moderate stool in colon., Correlate for constipation Patient was given mag citrate in the ED for her constipation. Provided instructions to follow-up with PCP as well as general surgery for right upper quadrant pain. Also encouraged to follow-up with PCP, urology and GI Dragon Disclaimer: Anel Disclaimer: This electronic medical record was generated, in whole or in part, using a voice recognition dictation system. Departure Departure Impression: Primary Impression: Right flank pain Additional Impressions: Kidney stone Right upper quadrant pain Constipation Qualified Codes: K59.00 - Constipation, unspecified Disposition: HOME / SELF CARE / HOMELESS Condition: STABLE Referrals: UNKNOWN PCP NAME (PCP) CHERYL ALEXANDER MD follow up for kidney stone NEY SILVA MD follow up in 1-2 weeks ROCKY ZACARIAS MD follow up in one week Patient Instructions: Constipation, Adult, Flank Pain, [id number], Kidney Stones Additional Instructions: You were evaluated in the emergency room, we highly encourage you to follow-up with the provided general surgeon as well as your primary care doctor. You are noted to have kidney stones in your kidney, please follow-up with the provided vulcanizer operator. You are also constipated, increase your dietary fiber intake, increase your water intake Scripts Polyethylene Glycol 3350 (MIRALAX) 119 Gm Powder 17 GM PO DAILY for constipation, #255 GM 0 Refills dissolve in water Prov: LEE CUELLAR APRN 01/12/22 LEE CUELLAR APRN Jan 12, 2022 20:37
[2022-01-12 21:17] VITALS: BP 112/68
== END 2022-01-12 21:25 | disposition home or self-care (01) ==
LOC: ER 17:11
DX: N20.0 Calculus of kidney (principal); K59.00 Constipation, unspecified
CPT/HCPCS: 36415; 74176; 76705; 80053; 80307; 81001; 81025; 83690; 85025; 87086; 96361; 96374; 96375; 99284; G0480; J2405; J3010; J3490; J7030